=== PATIENT | female | born 1970 | race Caucasian/White ===

== ENCOUNTER → 2018-07-25 10:42 | Outpatient (CLI) | payer OTHER, SELFPAY ==
--- NOTE | 2018-07-25 | DI.RAD.S_ITS ---
PROCEDURE: XR CERVICAL SPINE 2V OR 3V INDICATIONS: NECK PAIN TECHNIQUE: 3 view(s) of the cervical spine were acquired. COMPARISON: [facility], , CERVICAL SPINE 2 OR 3 VIEWS, 10/23/2014, 11:05. FINDINGS: Bones: No fractures or dislocations to the C7-T1 level. There are [id number] areas of degenerative disc space narrowing most notable at C6-7, with interval progression since 2014. The lateral masses of C1 appear intact on the odontoid view. No suspicious bony lesions. Soft tissues: No prevertebral soft tissue swelling. IMPRESSION: Early degenerative changes most prominent at C6-7. Dictated by: Karen Raygoza M.D. on 07/25/2018 at 11:57 Approved by: Karen Raygoza M.D. on 07/25/2018 at 11:58
== END ==
PROVIDERS: PCP Internal Medicine; Visit Provider Internal Medicine
DX: M54.2 Cervicalgia (principal); M47.22 Other spondylosis with radiculopathy, cervical region
CPT/HCPCS: 72040

== ENCOUNTER → 2018-11-03 17:43 | Outpatient (CLI) | payer OTHER, SELFPAY ==
--- NOTE | 2018-11-03 | DI.MRI.S_ITS ---
PROCEDURE: MR CERVICAL SPINE WO CON INDICATIONS: CERVICALGIA TECHNIQUE: Noncontrast sagittal T1 spin echo and T2 fast spin echo, sagittal STIR, foraminal oblique sagittal T2 fast spin echo, and axial gradient echo or T2 fast spin echo through the cervical spine. COMPARISON: None. FINDINGS: Image quality: Excellent. Alignment and Curvature: There is normal bony alignment. Bone Marrow: Marrow demonstrates normal overall signal. Spinal Cord: Visualized spinal cord has normal size and signal. No cerebellar tonsillar herniation. Paraspinous Soft Tissues: No paravertebral masses. Prevertebral soft tissues are normal in thickness. C2-C3: Normal appearance. C3-C4: Normal appearance except for presence of a very small posterior midline disc bulge which does not distort the adjacent cord and produce only minimal spinal stenosis. C4-C5: Normal appearance. C5-C6: Only a slight degree of degenerative disc disease is present with slight posterior midline disc bulging, without spinal or foraminal stenosis. C6-C7: Moderate degenerative disc disease, broad-based transverse disc bulge slightly greater on the right than the left. Facet osteoarthritis is greater on the left than the right producing moderate left and mild right foraminal stenosis. C7-T1: Normal appearance. IMPRESSION: Only a mild degree of degenerative disc disease and facet osteoarthritis is present with mild spinal stenosis anteriorly overall. This is best seen at the C6-7 level where effacement of CSF from the thecal sac indicates presence of moderate spinal stenosis and no disc herniation is found. Dictated by: Enrique Alan M.D. on 11/04/2018 at 13:09 Approved by: Enrique Alan M.D. on 11/04/2018 at 13:14
== END ==
PROVIDERS: PCP Internal Medicine; Visit Provider Internal Medicine
DX: M50.30 Other cervical disc degeneration, unspecified cervical region (principal); M47.812 Spondylosis without myelopathy or radiculopathy, cervical region
CPT/HCPCS: 72141

== ENCOUNTER → 2020-01-16 14:37 | Outpatient (CLI) | payer OTHER, SELFPAY ==
--- NOTE | 2020-01-16 | DI.RAD.S_ITS ---
PROCEDURE: XR HAND LT MIN 3V INDICATIONS: LEFT HAND PAIN TECHNIQUE: 3 views of the hand(s) acquired. COMPARISON: None. FINDINGS: Bones: No fractures or dislocations. Carpal bones are normally aligned. No suspicious bony lesions. Soft tissues: No suspicious soft tissue calcifications. There is mild soft tissue swelling of the left hand. IMPRESSION: Mild diffuse left hand soft tissue swelling without underlying osseous abnormalities. Dictated by: Artie Marin M.D. on 01/16/2020 at 17:04 Approved by: Artie Marin M.D. on 01/16/2020 at 17:05
--- NOTE | 2020-01-16 | DI.RAD.S_ITS ---
PROCEDURE: XR WRIST LT MIN 3V INDICATIONS: LEFT HAND PAIN TECHNIQUE: 4 views of the wrist were acquired. COMPARISON: [facility], , XR HAND LT MIN 3V, 01/16/2020, 14:34. FINDINGS: Bones: No acute fractures or dislocations. There are degenerative changes of the left radiocarpal joint. Ulnar minus variance is noted. Degenerative changes of the 1st and 2nd carpometacarpal joints as well as the triscaphe joint. No suspicious bony lesions. Scaphoid view: Scaphoid appears intact. Scapholunate interval is maintained. Soft tissues: No suspicious soft tissue calcifications. Mild soft tissue swelling of the left hand and wrist. IMPRESSION: Mild soft tissue swelling of the left hand and wrist without underlying fracture or dislocation. Degenerative changes of the left wrist. Incidental note of ulnar minus variance without evidence for osteonecrosis of the lunate. Dictated by: Artie Marin M.D. on 01/16/2020 at 17:05 Approved by: Artie Marin M.D. on 01/16/2020 at 17:10
== END ==
PROVIDERS: PCP Internal Medicine; Referring Provider Family Medicine; Visit Provider Family Medicine
DX: M79.642 Pain in left hand (principal); M79.89 Other specified soft tissue disorders
CPT/HCPCS: 73110; 73130